=== PATIENT | female | born 2000 | race Hispanic/Latino ===

== ENCOUNTER 2018-02-15 17:17 | Emergency (ER) | payer MEDICAID, SELFPAY ==
--- NOTE | 2018-02-15 19:24 | ER ---
Nurse's Notes [facility] Name: Deepthi Spencer Age: 17 yrs Sex: Female : 2000 Arrival Date: 02/15/2018 Time: 17:19 Bed 6 Private MD: None, None Diagnosis: Acute pharyngitis;Cough Presentation: 02/15 17:43 Presenting complaint: Patient states: Sore throat and fever since yesterday. Reports aj1 cough and nasal congestion as well. Transition of care: patient was not received from another setting of care. Onset of symptoms was February 14, 2018. Risk Assessment: Do you want to hurt yourself or someone else? Patient reports no desire to harm self or others. Initial Sepsis Screen: Does the patient meet any 2 criteria? Systolic BP < 90 mmHg. No. Patient's initial sepsis screen is negative. Does the patient have a suspected source of infection? Yes: Other: sore throat. Care prior to arrival: None. 17:43 Method Of Arrival: Ambulatory aj1 17:43 Acuity: VICENTE 4 aj1 Triage Assessment: 17:45 General: Appears in no apparent distress. comfortable, Behavior is calm, cooperative, aj1 appropriate for age. Pain: Complains of pain in left aspect of posterior pharynx and right aspect of posterior pharynx Pain does not radiate. Pain currently is 7 out of 10 on a pain scale. EENT: Throat is reddened bilaterally. Neuro: Level of Consciousness is awake, alert, obeys commands. Cardiovascular: Patient's skin is warm and dry. Respiratory: Airway is patent Respiratory effort is even, unlabored, Respiratory pattern is regular, symmetrical, Breath sounds are clear bilaterally. 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 - Social history:: Smoking status: Patient/guardian denies using tobacco. - Ebola Screening: : Patient denies travel to an Ebola-affected area in the 21 days before illness onset. Screenin:10 Abuse screen: Denies threats or abuse. Nutritional screening: No deficits noted. jd3 Tuberculosis screening: No symptoms or risk factors identified. Fall Risk Ambulatory Aid- None/Bed Rest/Nurse Assist (0 pts). Gait- Normal/Bed Rest/Wheelchair (0 pts) Mental Status- Oriented to own ability (0 pts). Total Nick Fall Scale indicates No Risk (0-24 pts). Assessment: 19:08 General: Appears in no apparent distress. Behavior is calm, cooperative, appropriate jd3 for age. Pain: Complains of pain in throat Quality of pain is described as burning. Neuro: Level of Consciousness is awake, alert, obeys commands, Oriented to person, place, time, situation, Appropriate for age. Cardiovascular: Capillary refill < 3 seconds Patient's skin is warm and dry. Respiratory: Reports cough that is Airway is patent Respiratory effort is even, unlabored, Respiratory pattern is regular, symmetrical, Breath sounds are clear bilaterally. GI: No signs and/or symptoms were reported involving the gastrointestinal system. : No signs and/or symptoms were reported regarding the genitourinary system. EENT: Throat is clear is pink. Derm: Skin is intact, Skin is dry, Skin is normal, Skin temperature is warm. Musculoskeletal: Circulation, motion, and sensation intact. Range of motion: intact in all extremities. 19:30 Reassessment: Patient appears in no apparent distress at this time. Patient and/or jd3 family updated on plan of care and expected duration. Pain level reassessed. Patient is alert, oriented x 3, equal unlabored respirations, skin warm/dry/pink. Vital Signs: 17:45 BP 135 / 93; Pulse 81; Resp 18; Temp 98.6(O); Pulse Ox 100% on R/A; Weight 99.79 kg aj1 (R); Height 5 ft. 2 in. (157.48 cm) (R); Pain 7/10; 19:32 Pulse 80; Resp 17 S; Pulse Ox 100% on R/A; jd3 17:45 Body Mass Index 40.24 (99.79 kg, 157.48 cm) aj1 ED Course: 17:19 Patient arrived in ED. sb2 17:20 None, None is Private Physician. sb2 17:45 Triage completed. aj1 17:45 Arm band placed on Patient placed in waiting room, Patient notified of wait time. aj1 18:21 [facility]ande [facility]C [facility]. snw 18:21 Noel Ibarra MD is Attending Physician. snw 19:07 Tone Bartholomew, RN is Primary Nurse. jd3 19:10 Patient has correct armband on for positive identification. Bed in low position. Call jd3 light in reach. Side rails up X 1. Adult w/ patient. 19:32 No provider procedures requiring assistance completed. Patient did not have IV access jd3 during this emergency room visit. Administered Medications: 19:31 Drug: Decadron 8 mg Route: PO; jd3 19:31 Follow up: Response: Medication administered at discharge. jd3 19:31 Drug: Tussionex Pennkinetic ER 2.5 ml Route: PO; jd3 19:32 Follow up: Response: Medication administered at discharge. jd3 Outcome: 19:23 Discharge ordered by . snw 19:32 Discharged to home ambulatory, with family. jd3 19:32 Condition: stable 19:32 Discharge instructions given to patient, family, Instructed on discharge instructions, follow up and referral plans. Demonstrated understanding of instructions, follow-up care. 19:34 Patient left the ED. jd3 Signatures: Pamella Lay RN RN aj1 Lorna Deshpande FNP-C [employer] Tone Bartholomew, RN RN jd3 Gayle Hutson sb2
--- NOTE | 2018-02-15 19:24 | EDPHYS ---
Physician Documentation [facility] Name: Deepthi Spencer Age: 17 yrs Sex: Female : 2000 Arrival Date: 02/15/2018 Time: 17:19 Bed 6 Private MD: None, None ED Physician Noel Ibarra HPI: 02/15 19:53 This 17 yrs old Female presents to ER via Ambulatory with complaints of Sore snw Throat. 19:53 The patient presents with sore throat. The patient describes throat pain as scratchy. snw Onset: The symptoms/episode began/occurred suddenly, last night. Severity of symptoms: At their worst the symptoms were mild. Associated signs and symptoms: Pertinent positives: cough, Pertinent negatives fever. The patient has not experienced similar symptoms in the past. It is unknown whether or not the patient has recently seen a physician. 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 - Social history:: Smoking status: Patient/guardian denies using tobacco. - Ebola Screening: : Patient denies travel to an Ebola-affected area in the 21 days before illness onset. ROS: 19:52 Constitutional: Negative for fever, chills, and weight loss, Eyes: Negative for injury, snw pain, redness, and discharge, Neck: Negative for injury, pain, and swelling, Cardiovascular: Negative for chest pain, palpitations, and edema, Abdomen/GI: Negative for abdominal pain, nausea, vomiting, diarrhea, and constipation, Back: Negative for injury and pain, : Negative for injury, bleeding, discharge, and swelling, MS/Extremity: Negative for injury and deformity, Skin: Negative for injury, rash, and discoloration, Neuro: Negative for headache, weakness, numbness, tingling, and seizure. 19:52 ENT: Positive for sore throat. 19:52 Respiratory: Positive for cough, with no reported sputum. Exam: 19:51 Constitutional: This is a well developed, well nourished patient who is awake, alert, snw and in no acute distress. Head/Face: Normocephalic, atraumatic. Eyes: Pupils equal round and reactive to light, extra-ocular motions intact. Lids and lashes normal. Conjunctiva and sclera are non-icteric and not injected. Cornea within normal limits. Periorbital areas with no swelling, redness, or edema. ENT: Nares patent. No nasal discharge, no septal abnormalities noted. Tympanic membranes are mildly inflammed, normal and external auditory canals are clear. Oropharynx with no redness, swelling, or masses, exudates, or evidence of obstruction, uvula midline. Mucous membranes moist. Neck: Trachea midline, no thyromegaly or masses palpated, and no cervical lymphadenopathy. Supple, full range of motion without nuchal rigidity, or vertebral point tenderness. No Meningismus. Chest/axilla: Normal chest wall appearance and motion. Nontender with no deformity. No lesions are appreciated. Cardiovascular: Regular rate and rhythm with a normal S1 and S2. No gallops, murmurs, or rubs. Normal PMI, no JVD. No pulse deficits. Abdomen/GI: Soft, non-tender, with normal bowel sounds. No distension or tympany. No guarding or rebound. No evidence of tenderness throughout. Back: No spinal tenderness. No costovertebral tenderness. Full range of motion. Skin: Warm, dry with normal turgor. Normal color with no rashes, no lesions, and no evidence of cellulitis. MS/ Extremity: Pulses equal, no cyanosis. Neurovascular intact. Full, normal range of motion. Neuro: Awake and alert, GCS 15, oriented to person, place, time, and situation. Cranial nerves II-XII grossly intact. Motor strength 5/5 in all extremities. Sensory grossly intact. Cerebellar exam normal. Normal gait. Psych: Awake, alert, with orientation to person, place and time. Behavior, mood, and affect are within normal limits. 19:51 Respiratory: the patient does not display signs of respiratory distress, Respirations: normal, Breath sounds: are clear throughout, dry cough noted. Vital Signs: 17:45 BP 135 / 93; Pulse 81; Resp 18; Temp 98.6(O); Pulse Ox 100% on R/A; Weight 99.79 kg aj1 (R); Height 5 ft. 2 in. (157.48 cm) (R); Pain 7/10; 19:32 Pulse 80; Resp 17 S; Pulse Ox 100% on R/A; jd3 17:45 Body Mass Index 40.24 (99.79 kg, 157.48 cm) aj1 MDM: 18:37 Patient medically screened. snw 19:53 Data reviewed: vital signs, nurses notes. Data interpreted: Pulse oximetry: on room air snw is 100 %. Interpretation: normal. Counseling: I had a detailed discussion with the patient and/or guardian regarding: the historical points, exam findings, and any diagnostic results supporting the discharge/admit diagnosis, the presence of at least one elevated blood pressure reading (>120/80) during this emergency department visit, lab results, the need for outpatient follow up, for definitive care, to return to the emergency department if symptoms worsen or persist or if there are any questions or concerns that arise at home. Special discussion: I have referred the patient to see his PCP for further evaluation of high blood pressure. Based on the history and exam findings, there is no indication for further emergent testing or inpatient evaluation. I discussed with the patient/guardian the need to see the primary care provider for further evaluation of the symptoms. 02/15 17:48 Order name: Strep; Complete Time: 18:37 aj 02/15 19:12 Order name: Throat Culture EDMS Administered Medications: 19:31 Drug: Decadron 8 mg Route: PO; jd3 19:31 Follow up: Response: Medication administered at discharge. jd3 19:31 Drug: Tussionex Pennkinetic ER 2.5 ml Route: PO; jd3 19:32 Follow up: Response: Medication administered at discharge. jd3 Disposition: 02/16 07:02 Co-signature as Attending Physician, Noel Ibarra MD I agree with the assessment and bridget plan of care. Disposition: 02/15/18 19:23 Discharged to Home. Impression: Acute pharyngitis, Cough. - Condition is Stable. - Discharge Instructions: Allergies, Adult, Upper Respiratory Infection, Adult. - Work release form, Medication Reconciliation Form, Thank You Letter, Antibiotic Education, Prescription Opioid Use form. - Follow up: Private Physician; When: 2 - 3 days; Reason: Recheck today's complaints, Continuance of care, Re-evaluation by your physician. Follow up: Emergency Department; When: As needed; Reason: Worsening of condition. Signatures: Dispatcher [employer] Pamella Dickerson, RN RN aj1 Noel Ibarra MD MD cha Therrien, Shelly, INDUSTRIAL ELECTRICIAN JOURNEYMAN-C INDUSTRIAL ELECTRICIAN JOURNEYMAN-Isbaelw Tone Bartholomew, RN RN jd3 Corrections: (The following items were deleted from the chart) 02/15 19:34 19:23 02/15/2018 19:23 Discharged to Home. Impression: Acute pharyngitis; Cough. jd3 Condition is Stable. Forms are Medication Reconciliation Form, Thank You Letter, Antibiotic Education, Prescription Opioid Use. Follow up: Private Physician; When: 2 - 3 days; Reason: Recheck today's complaints, Continuance of care, Re-evaluation by your physician. Follow up: Emergency Department; When: As needed; Reason: Worsening of condition. snw
[2018-02-15] MEDS ORDERED: DEXAMETHASONE 4 MG TAB ONE (19:31)
[2018-02-15] MEDS ORDERED: HYDROCODONE/CHLORPHEN 5 ML/OSYR ONE (19:32)
== END 2018-02-15 19:34 | disposition home or self-care (01) ==
LOC: ER 17:17
DX: J02.9 Acute pharyngitis, unspecified (principal); R05 Cough
CPT/HCPCS: 87070; 87081; 99283

== ENCOUNTER 2019-03-03 15:22 | Emergency (ER) | payer SELFPAY ==
[2019-03-03 16:35] LABS: Absolute Lymphocytes (CBC) 1.9 K/uL (0.7-4.9); Basophils % 0.5 % (0-1.3); Hematocrit 43.9 % (36.0-45.0); Lymphocytes % 20.8 % (15.3-44.8); MPV 8.7 fL (7.6-11.3); RBC Red Blood Cell Count 4.96 M/uL (3.86-4.86)
[2019-03-03 16:37] LABS: Urine Blood TRACE (NEG); Urine Glucose NEGATIVE (NEG); Urine Protein 1+ (NEG); Urine pH 6.5 (5.0-7.0)
[2019-03-03 16:53] LABS: ALT/SGPT 27 U/L (12-78); AST/SGOT 23 U/L (15-37); Albumin 3.8 g/dL (3.4-5.0); Alkaline Phosphatase 91 U/L (45-117); BUN Blood Urea Nitrogen 8 mg/dL (7-18); Bicarbonate 24 mmol/L (21-32); Bilirubin Direct 0.2 mg/dL (0-0.2); Bilirubin Total 0.7 mg/dL (0.2-1.0); Glucose Level 100 mg/dL (74-106); Lipase 81 U/L (73-393); Potassium 3.4 mmol/L (3.5-5.1); Protein, Total 8.7 g/dL (6.4-8.2); Sodium Level 140 mmol/L (136-145)
--- NOTE | 2019-03-03 18:10 | ER ---
Nurse's Notes [facility] Name: Deepthi Spencer Age: 18 yrs Sex: Female : 2000 Arrival Date: 03/03/2019 Time: 15:26 Bed 27 Private MD: Diagnosis: Gastroenteritis;Nausea and vomiting Presentation: 03/03 15:28 Presenting complaint: Patient states: n/v x 2 weeks, reports abd pain the 1st 2 days sv and has had mucous diarrhea. Decreased appetite. Transition of care: patient was not received from another setting of care. Onset of symptoms was February 2019. Risk Assessment: Do you want to hurt yourself or someone else? Patient reports no desire to harm self or others. Care prior to arrival: None. 15:28 Method Of Arrival: Ambulatory sv 15:28 Acuity: VICENTE 3 sv 18:27 Initial Sepsis Screen: Does the patient meet any 2 criteria? No. Patient's initial wh sepsis screen is negative. Does the patient have a suspected source of infection? No. Patient's initial sepsis screen is negative. Triage Assessment: 16:00 General: Behavior is calm, cooperative, appropriate for age. 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 - Social history:: Smoking status: Patient/guardian denies using tobacco. - Ebola Screening: : No symptoms or risks identified at this time. Screenin:00 Abuse screen: Denies threats or abuse. Denies injuries from another. Nutritional screening: No deficits noted. Tuberculosis screening: No symptoms or risk factors identified. Fall Risk None identified. Assessment: 16:00 General: Appears in no apparent distress. comfortable. Pain: Denies pain. Neuro: Level wh of Consciousness is awake, alert, obeys commands. Cardiovascular: Capillary refill < 3 seconds. Respiratory: Airway is patent Respiratory effort is even, unlabored, Respiratory pattern is regular, symmetrical. GI: Abdomen is flat, non-distended, Reports nausea, vomiting. : No signs and/or symptoms were reported regarding the genitourinary system. EENT: No signs and/or symptoms were reported regarding the EENT system. Derm: Skin is intact, is healthy with good turgor, Skin is pink, warm \T\ dry. normal. Musculoskeletal: Range of motion: intact in all extremities. 17:15 Reassessment: Patient appears in no apparent distress at this time. Patient and/or family updated on plan of care and expected duration. Pain level reassessed. Patient is alert, oriented x 3, equal unlabored respirations, skin warm/dry/pink. 18:25 Reassessment: Patient appears in no apparent distress at this time. No changes from previously documented assessment. Patient and/or family updated on plan of care and expected duration. Pain level reassessed. Patient is alert, oriented x 3, equal unlabored respirations, skin warm/dry/pink. Vital Signs: 15:29 BP 141 / 76; Pulse 64; Resp 16; Temp 98.2(O); Pulse Ox 99% ; Weight 104.33 kg; Height 5 sv ft. 3 in. (160.02 cm); Pain 0/10; 16:30 BP 115 / 78; Pulse 75; Resp 18; Pulse Ox 100% on R/A; wh 18:00 BP 132 / 69; Pulse 79; Resp 16; Pulse Ox 100% on R/A; wh 15:29 Body Mass Index 40.74 (104.33 kg, 160.02 cm) sv ED Course: 15:26 Patient arrived in ED. mr 15:29 Triage completed. sv 15:30 Arm band placed on. sv 15:37 Jaime Bowman MD is Attending Physician. kdr 15:49 Miriam Guajardo is Primary Nurse. wh 16:00 Patient has correct armband on for positive identification. Placed in gown. Bed in low wh position. Call light in reach. Side rails up X 1. Pulse ox on. NIBP on. 16:30 Inserted saline lock: 22 gauge in right antecubital area, using aseptic technique. Blood collected. 18:27 No provider procedures requiring assistance completed. IV discontinued, intact, wh bleeding controlled, No redness/swelling at site. Administered Medications: No medications were administered Outcome: 18:07 Discharge ordered by . kdr 18:28 Discharged to home ambulatory. wh 18:28 Condition: good 18:28 Discharge instructions given to patient, Instructed on discharge instructions, follow up and referral plans. medication usage, POC Nausea and Vomiting Demonstrated understanding of instructions, follow-up care, medications, POC Prescriptions given X 1. 18:31 Patient left the ED. wh Signatures: Rachael Haider RN RN sv Rittger, Kevin, MD MD kdr Rivera, Mary mr Habtangela, Miriam Corrections: (The following items were deleted from the chart) 15:31 15:29 Pulse 64bpm; Resp 16bpm; Pulse Ox 99%; Temp 98.2F Oral; 104.33 kg; Height 5 ft. 3 sv in.; BMI: 40.7; Pain 0/10; sv
--- NOTE | 2019-03-03 18:11 | EDPHYS ---
Physician Documentation [facility] Name: Deepthi Spencer Age: 18 yrs Sex: Female : 2000 Arrival Date: 03/03/2019 Time: 15:26 Bed 27 Private MD: ED Physician Jaime Bowman HPI: 03/03 16:50 This 18 yrs old Female presents to ER via Ambulatory with complaints of kdr Nausea/Vomiting. 16:50 The patient presents to the emergency department with nausea, that is mild, vomiting, kdr that is intermittent, diarrhea, that is intermittent, abdominal pain, of the suprapubic area, right lower quadrant and left lower quadrant, described as achy, crampy, dull, and does not radiate. Onset: The symptoms/episode began/occurred gradually, 2 week(s) ago. Possible causes: unknown. The symptoms are aggravated by nothing. The symptoms are alleviated by nothing. Severity of symptoms: At their worst the symptoms were moderate in the emergency department the symptoms. The patient has not experienced similar symptoms in the past. The patient has not recently seen a physician. 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 - Social history:: Smoking status: Patient/guardian denies using tobacco. - Ebola Screening: : No symptoms or risks identified at this time. ROS: 16:50 Constitutional: Negative for fever, chills, and weight loss, Eyes: Negative for injury, kdr pain, redness, and discharge, Neck: Negative for injury, pain, and swelling, Cardiovascular: Negative for chest pain, palpitations, and edema, Respiratory: Negative for shortness of breath, cough, wheezing, and pleuritic chest pain, Back: Negative for injury and pain, : Negative for injury, bleeding, discharge, and swelling, MS/Extremity: Negative for injury and deformity, Skin: Negative for injury, rash, and discoloration, Neuro: Negative for headache, weakness, numbness, tingling, and seizure activity. Psych: Negative for depression, anxiety, suicide ideation, homicidal ideation, and hallucinations, Allergy/Immunology: Negative for hives, rash, and allergies, Endocrine: Negative for neck swelling, polydipsia, polyuria, polyphagia, and marked weight changes, Hematologic/Lymphatic: Negative for swollen nodes, abnormal bleeding, and unusual bruising. 16:50 Abdomen/GI: Positive for abdominal pain, nausea and vomiting, diarrhea, Negative for abdominal cramps, abdominal distension, anorexia, dysphagia, rectal pain, rectal bleeding, bowel incontinence. Exam: 16:50 Constitutional: This is a well developed, well nourished patient who is awake, alert, kdr and in no acute distress. Head/Face: Normocephalic, atraumatic. Eyes: Pupils equal round and reactive to light, extra-ocular motions intact. Lids and lashes normal. Conjunctiva and sclera are non-icteric and not injected. Cornea within normal limits. Periorbital areas with no swelling, redness, or edema. ENT: Nares patent. No nasal discharge, no septal abnormalities noted. Tympanic membranes are normal and external auditory canals are clear. Oropharynx with no redness, swelling, or masses, exudates, or evidence of obstruction, uvula midline. Mucous membranes moist. Neck: Trachea midline, no thyromegaly or masses palpated, and no cervical lymphadenopathy. Supple, full range of motion without nuchal rigidity, or vertebral point tenderness. No Meningismus. Chest/axilla: Normal chest wall appearance and motion. Nontender with no deformity. No lesions are appreciated. Cardiovascular: Regular rate and rhythm with a normal S1 and S2. No gallops, murmurs, or rubs. Normal PMI, no JVD. No pulse deficits. Respiratory: Lungs have equal breath sounds bilaterally, clear to auscultation and percussion. No rales, rhonchi or wheezes noted. No increased work of breathing, no retractions or nasal flaring. Abdomen/GI: Soft, non-tender, with normal bowel sounds. No distension or tympany. No guarding or rebound. No evidence of tenderness throughout. Back: No spinal tenderness. No costovertebral tenderness. Full range of motion. Skin: Warm, dry with normal turgor. Normal color with no rashes, no lesions, and no evidence of cellulitis. MS/ Extremity: Pulses equal, no cyanosis. Neurovascular intact. Full, normal range of motion. Neuro: Awake and alert, GCS 15, oriented to person, place, time, and situation. Cranial nerves II-XII grossly intact. Motor strength 5/5 in all extremities. Sensory grossly intact. Cerebellar exam normal. Normal gait. Psych: Awake, alert, with orientation to person, place and time. Behavior, mood, and affect are within normal limits. Vital Signs: 15:29 BP 141 / 76; Pulse 64; Resp 16; Temp 98.2(O); Pulse Ox 99% ; Weight 104.33 kg; Height 5 sv ft. 3 in. (160.02 cm); Pain 0/10; 16:30 BP 115 / 78; Pulse 75; Resp 18; Pulse Ox 100% on R/A; wh 18:00 BP 132 / 69; Pulse 79; Resp 16; Pulse Ox 100% on R/A; wh 15:29 Body Mass Index 40.74 (104.33 kg, 160.02 cm) sv MDM: 16:50 Data reviewed: vital signs, nurses notes, lab test result(s). kdr 18:07 Patient medically screened. kdr 03/03 15:40 Order name: Basic Metabolic Panel; Complete Time: 17:58 kdr 03/03 15:40 Order name: CBC with Diff; Complete Time: 16:39 kdr 03/03 15:40 Order name: Creatinine for Radiology; Complete Time: 17:58 kdr 03/03 15:40 Order name: Hepatic Function; Complete Time: 17:58 kdr 03/03 15:40 Order name: Lipase; Complete Time: 17:58 kdr 03/03 16:25 Order name: Urine Dipstick--Ancillary (enter results); Complete Time: 16:39 eb 03/03 15:40 Order name: IV Saline Lock; Complete Time: 16:23 kdr 03/03 15:40 Order name: Labs collected and sent; Complete Time: 16:23 kdr 03/03 15:41 Order name: Urine Dipstick-Ancillary (obtain specimen); Complete Time: 16:23 kdr 03/03 15:41 Order name: Urine Test (obtain specimen); Complete Time: 16:23 kdr 03/03 16:25 Order name: Urine --Ancillary (enter results); Complete Time: 16:39 eb Administered Medications: No medications were administered Disposition: 03/03/19 18:07 Discharged to Home. Impression: Gastroenteritis, Nausea and vomiting. - Condition is Stable. - Discharge Instructions: Viral Gastroenteritis, Adult, [id number], Nausea and Vomiting, Adult, [id number]. - Prescriptions for Zofran 4 mg Oral Tablet - take 1 tablet by ORAL route every 12 hours As needed; 20 tablet. - Medication Reconciliation Form, Thank You Letter form. - Follow up: Private Physician; When: 2 - 3 days; Reason: If symptoms return, Further diagnostic work-up, Recheck today's complaints, Continuance of care, Re-evaluation by your physician. - Problem is an ongoing problem. - Symptoms have improved. - Notes: Please start Pro-biotics as soon as possible and follow-up as needed Signatures: Dispatcher [employer] Rachael Limon RN RN Jaime Montes MD MD kdr Habalo, Winsy wh Corrections: (The following items were deleted from the chart) 18:31 18:07 03/03/2019 18:07 Discharged to Home. Impression: Gastroenteritis; Nausea and wh vomiting. Condition is Stable. Forms are Medication Reconciliation Form, Thank You Letter, Antibiotic Education, Prescription Opioid Use. Follow up: Private Physician; When: 2 - 3 days; Reason: If symptoms return, Further diagnostic work-up, Recheck today's complaints, Continuance of care, Re-evaluation by your physician. Problem is an ongoing problem. Symptoms have improved. kdr
== END 2019-03-03 18:31 | disposition home or self-care (01) ==
LOC: ER 15:22
DX: K52.9 Noninfective gastroenteritis and colitis, unspecified (principal)
CPT/HCPCS: 36415; 80048; 80076; 81003; 81025; 83690; 85025; 99284